=== PATIENT | female | born 1985 | race Caucasian/White ===

== ENCOUNTER 2017-05-05 10:35 | Emergency (ER) | payer MEDICAID ==
[~2017-05-05] VITALS: Ht 160 cm; Wt 78.0 kg
[~2017-05-05 10:35] MED LIST: CIPR500T4 PO; COMPLERA PO; D-ME473S18 PO; FOLI-49 PO; HYDR-3498 PO; HYDR-906 PO; IBUP-1542 PO; NAPR-260 PO; PHEN-537 PO; PREN1TAB12 PO
[2017-05-05 10:37] VITALS: Ht 160 cm; Wt 78.0 kg
[2017-05-05] MEDS ORDERED: SOD CHLORIDE 0.9% 1,000 ML IV STA (12:26)
[2017-05-05] MEDS ORDERED: ONDANSETRON 4 MG INJ IV STA (12:26)
[2017-05-05] MEDS ORDERED: morphine 4 MG/ML VIAL IV STA (12:26)
--- NOTE | 2017-05-05 12:54 | ERD ---
ER Documentation Chief Complaint Date/Time DATE: 05/05/17 TIME: 12:53 Chief Complaint ap since last night with nausea HPI 31-year-old female presents with right lower quadrant abdominal pain since last night. Patient associated with nausea and mild diarrhea. She denies any vomiting, fevers, past abdominal surgeries. Patient states that she has decreased appetite and her last meal was last night.. ROS All systems reviewed and are negative except as per history of present illness. Medications Home Meds Active Scripts Ondansetron (Ondansetron Odt) 4 Mg Tab.rapdis, 4 MG PO Q6H Y for NAUSEA AND/OR VOMITING, #14 TAB Prov:LUCY UNDERWOOD PA-C 05/05/17 Acetaminophen* (Tylenol*) 325 Mg Tablet, 2 TAB PO Q6 Y for PAIN AND OR ELEVATED TEMP, #20 TAB Prov:LUCY UNDERWOOD PA-C 05/05/17 Hydrocodone/Acetaminophen ([place] 5-325 Tablet) 1 Each Tablet, 1 TAB PO Q6H Y for PAIN, #15 TAB Prov:ZENON STUART PA-C 05/06/16 Ibuprofen* (Motrin*) 600 Mg Tab, 600 MG PO Q6H Y for PAIN AND OR ELEVATED TEMP, #30 TAB Prov:ZENON STUART PA-C 05/06/16 Hydrocodone Bit-Acetaminophen* ([place]*) 5-325 Mg Tab, 1 TAB PO DAILY for PAIN, # 7 TAB 0 Refills Prov:DEV PENG PA-C 12/22/15 Phenazopyridine Hcl* (Pyridium*) 100 Mg Tab, 100 MG PO TID Y for PAIN, #9 TAB 0 Refills Prov:DEV PENG PA-C 12/22/15 Ciprofloxacin Hcl* (Ciprofloxacin Hcl*) 500 Mg Tablet, 500 MG PO BID, #20 TAB 0 Refills Prov:DEV PENG PA-C 12/22/15 Ibuprofen* (Motrin*) 600 Mg Tab, 600 MG PO Q6, #30 TAB Prov:SHAWN RIVERO MD 03/22/15 Hydrocodone Bit-Acetaminophen* ([place]*) 5-325 Mg Tab, 1 TAB PO Q6 Y for PAIN, # 20 TAB Prov:SHAWN RIVERO MD 03/22/15 Allergies Allergies: Coded Allergies: No Known Allergy (Unverified , 8/5/15) PMhx/Soc History of Surgery: Yes ( 2003, 2011) Anesthesia Reaction: No Hx Neurological Disorder: No Hx Respiratory Disorders: No Hx Cardiac Disorders: No Hx Psychiatric Problems: No Hx Miscellaneous Medical Probl: No Hx Alcohol Use: No Hx Substance Use: No Hx Tobacco Use: No Physical Exam Vitals Vital Signs Date Time Temp Pulse Resp B/P Pulse Ox O2 Delivery O2 Flow Rate FiO2 05/05/17 10:37 98.1 71 20 111/53 99 Physical Exam GENERAL: well-developed/well-nourished, in no apparent distress, non-toxic appearing HENT: NC/AT, moist mucous membranes EYES: Conjunctiva normal NECK: Supple, no lymphadenopathy PULM: CTA bilaterally, no rales, rhonchi, or wheezing heard CV: Normal S1S2, RRR, good capillary refill GI: Soft, non-distended, tender to palpation right lower quadrant Normal bowel sounds, no masses or organomegaly felt on exam No gross peritonitis, no bruits Negative Rovsing, negative [place], negative McBurney's point, Negative CVAT BACK: No masses EXT: No clubbing, cyanosis, or edema NEURO: Alert and Orientated SKIN: Intact, normal turgor PSYCH: Normal mood and mentation Result Diagram: 05/05/17 1255 05/05/17 1255 Results 24 hrs Laboratory Tests Test 05/05/17 12:55 White Blood Count 5.710^3/ul Red Blood Count 4.2110^6/ul Hemoglobin 11.6g/dl Hematocrit 35.8% Mean Corpuscular Volume 85.0fl Mean Corpuscular Hemoglobin 27.6pg Mean Corpuscular Hemoglobin Concent 32.4g/dl Red Cell Distribution Width 12.9% Platelet Count 89508^3/UL Mean Platelet Volume 9.8fl Neutrophils % 56.8% Lymphocytes % 28.8% Monocytes % 12.4% Eosinophils % 1.4% Basophils % 0.4% Nucleated Red Blood Cells % 0.0/100WBC Neutrophils # 3.210^3/ul Lymphocytes # 1.610^3/ul Monocytes # 0.710^3/ul Eosinophils # 0.110^3/ul Basophils # 0.010^3/ul Nucleated Red Blood Cells # 0.010^3/ul Urine Color YELLOW Urine Clarity SLIGHTLY CLOUDY Urine pH 5.0 Urine Specific [place] 1.023 Urine Ketones TRACEmg/dL Urine Nitrite NEGATIVEmg/dL Urine Bilirubin NEGATIVEmg/dL Urine Urobilinogen NEGATIVEmg/dL Urine Leukocyte Esterase NEGATIVELeu/ul Urine Microscopic RBC 1/HPF Urine Microscopic WBC 1/HPF Urine Squamous Epithelial Cells FEW/HPF Urine Mucus MANY/HPF Urine Hemoglobin NEGATIVEmg/dL Urine Glucose NEGATIVEmg/dL Urine Total Protein NEGATIVEmg/dl Sodium Level 140mmol/L Potassium Level 3.9mmol/L Chloride Level 108mmol/L Carbon Dioxide Level 24mmol/L Anion Gap 12 Blood Urea Nitrogen 9mg/dl Creatinine 0.54mg/dl Glucose Level 84mg/dl Calcium Level 9.6mg/dl Total Bilirubin 0.4mg/dl Direct Bilirubin 0.00mg/dl Indirect Bilirubin 0.4mg/dl Aspartate Amino Transf (AST/SGOT) 30IU/L Alanine Aminotransferase (ALT/SGPT) 33IU/L Alkaline Phosphatase 58IU/L Total Protein 8.0g/dl Albumin 4.4g/dl Globulin 3.60g/dl Albumin/Globulin Ratio 1.22 Lipase 48U/L Current Medications Medications (Trade) Dose Ordered Sig/Liane Route PRN Reason Start Time Stop Time Status Last Admin Dose Admin Sodium Chloride (NS) 1,000 ml @ 1,000 mls/hr Q1H STAT IV 05/05/17 12:26 05/05/17 13:25 DC 05/05/17 13:08 Morphine Sulfate (morphine) 6 mg ONCE STAT IV 05/05/17 12:26 05/05/17 12:27 DC 05/05/17 13:08 Ondansetron HCl (Zofran Inj) 4 mg ONCE STAT IV 05/05/17 12:26 05/05/17 12:27 DC 05/05/17 13:08 Procedures/MDM 31-year-old female presents with right lower quadrant abdominal pain and nausea since yesterday. There was no evidence of appendicitis, diverticulitis, or other acute emergent or surgical conditions. IV access established, Lab work was drawn. CBC did not show any evidence of leukocytosis or anemia. CMP did not show any evidence of renal, liver, or electrolyte abnormalities. Lipase was normal. UA did not show any evidence of hemoglobin or urinary tract infection. CT of the abdomen and pelvis was done and radiologist stated CT abd and pelvis without contrast: 1. No CT evidence of acute intra-abdominal or pelvic process. 2. Mild fullness of the right renal collecting system, stable compared to 12/21. 3. Limited diverticulosis without evidence of diverticulitis. Patient stable to be discharged home to follow-up with primary care Departure Diagnosis: Primary Impression: Abdominal pain Additional Impression: Nausea Condition: Stable LUCY UNDERWOOD PA-C May 05, 2017 12:54
[2017-05-05 13:13] LABS: BASOPHILS % 0.4 % (0.0-2.0); EOSINOPHILS # 0.1 10^3/ul (0.0-0.5); EOSINOPHILS % 1.4 % (0.0-7.0); HEMATOCRIT 35.8 % (37.0-47.0); HEMOGLOBIN 11.6 g/dl (12.0-16.0); LYMPHOCYTES # 1.6 10^3/ul (0.8-2.9); LYMPHOCYTES % 28.8 % (15.0-51.0); MEAN CORPUSCULAR HEMOGLOBIN 27.6 pg (29.0-33.0); MEAN CORPUSCULAR HGB CONC 32.4 g/dl (32.0-37.0); MEAN PLATELET VOLUME 9.8 fl (7.4-10.4); MONOCYTE # 0.7 10^3/ul (0.3-0.9); MONOCYTES % 12.4 % (0.0-11.0); NEUTROPHIL # 3.2 10^3/ul (1.6-7.5); NEUTROPHILS % 56.8 % (39.0-77.0); PLATELET COUNT 233 10^3/UL (140-415); RED BLOOD COUNT 4.21 10^6/ul (4.20-5.40); RED CELL DISTRIBUTION WIDTH 12.9 % (11.5-14.5); WHITE BLOOD COUNT 5.7 10^3/ul (4.8-10.8)
[2017-05-05 13:19] LABS: ADD UMIC NO; UR ASCORBIC ACID NEGATIVE (NEGATIVE); UR BILIRUBIN (Dip) NEGATIVE (NEGATIVE); UR BLOOD (Dip) NEGATIVE (NEGATIVE); UR CLARITY SLIGHTLY CLOUDY (CLEAR); UR COLOR YELLOW (YELLOW); UR GLUCOSE (Dip) NEGATIVE (NEGATIVE); UR KETONES (Dip) TRACE mg/dL (NEGATIVE); UR LEUKOCYTE ESTERASE (Dip) NEGATIVE Leu/ul (NEGATIVE); UR MUCUS MANY /HPF (NONE SEEN); UR NITRITE (Dip) NEGATIVE (NEGATIVE); UR RBC 1 /HPF (0-5); UR SPECIFIC GRAVITY (Dip) 1.023 (1.003-1.030); UR SQUAMOUS EPITHELIAL CELL FEW /HPF (FEW); UR TOTAL PROTEIN (Dip) NEGATIVE (NEGATIVE); UR UROBILINOGEN (Dip) NEGATIVE (NEGATIVE)
[2017-05-05 13:32] LABS: ALBUMIN 4.4 g/dl (3.3-4.9); ALBUMIN/GLOBULIN RATIO 1.22; BILIRUBIN,INDIRECT 0.4 mg/dl (0-1.1); BILIRUBIN,TOTAL 0.4 mg/dl (0.2-1.3); CALCIUM 9.6 mg/dl (8.4-10.2); CREATININE 0.54 mg/dl (0.44-1.00); POTASSIUM 3.9 mmol/L (3.5-5.1)
--- NOTE | 2017-05-05 14:08 | RADRPT ---
PROCEDURE: CT Abdomen and Pelvis without contrast. CLINICAL INDICATION: Abdominal pain TECHNIQUE: CT scan of the abdomen and pelvis without contrast was performed on a multi-slice CT sc estefani without intravenous contrast. Coronal and sagittal reformatted images were obtained from the axial source images. Images were reviewed on a high-resolution PACS workstation. One or more of the following does reduction techniques were used: Automated exposure control; adjustment of the mA an d/or kV according to patient size; use of the aorta of reconstruction technique. The total exam CTD I equals 10.9 mGy and the total exam DLP equals 581.03 mGy-cm. COMPARISON: CT abdomen pelvis 12/22/2015 FINDINGS: There is minimal bibasilar atelectasis and/or scarring. Heart size is normal, and there is no evide nce of pericardial thickening or effusion. The liver, spleen, and pancreas are normal given limitations of a noncontrast CT examination. The g allbladder is normal. The adrenal glands are normal. There is mild fullness of the right renal collecting system which is stable compared to 12/22/2015 and likely within normal limits for this patient. No renal calcifica tions or jessica hydronephrosis is identified. The aorta is of normal caliber. There are a few shoddy and borderline enlarged retroperitoneal lymp h nodes, stable compared to prior study. There is no jessica retroperitoneal lymph node enlargement. There is no evidence of large or small bowel obstruction. There are moderate to scattered colonic di verticula. A normal appendix is identified. No free fluid or fluid collections are identified. No inflammatory changes are seen. The uterus is present. There are a few borderline enlarged right iliac lymph nodes, unchanged in siz e compared to 2016. The bladder is decompressed and collapsed. No free fluid is identified. The in guinal regions are unremarkable. The bones are intact. IMPRESSION: 1. No CT evidence of acute intra-abdominal or pelvic process. 2. Mild fullness of the right renal collecting system, stable compared to 12/22/2015. 3. Limited diverticulosis without evidence of diverticulitis. RPTAT: KK .Levi Gamez MD, MD Date Time Electronically viewed and signed by .Levi Gamez MD, MD on 05/05/2017 14:08 .B/
[2017-05-05] MEDS ORDERED: ONDA4TAB14 PO (14:44)
[2017-05-05] MEDS ORDERED: ACET325T33 PO (14:44)
[2017-05-05 15:07] VITALS: BP 107/63; PULSE 69; RESP 18; TEMP 98.2
== END 2017-05-05 15:08 | disposition home or self-care (01) ==
LOC: FTE 10:35
DX: R10.31 Right lower quadrant pain (principal); R11.0 Nausea
CPT/HCPCS: 36415; 74176; 80053; 81001; 83690; 85025; 96374; 96375; J2270; J2405; J7030; Z7502; 81003

== ENCOUNTER 2018-05-19 07:11 | Emergency (ER) | END 2018-05-19 08:47 | disposition home or self-care (01) ==

== ENCOUNTER 2018-10-20 17:28 | Emergency (ER) | payer MEDICAID ==
[~2018-10-20] VITALS: Ht 154.9 cm; Wt 62.3 kg
[~2018-10-20 17:28] MED LIST changes: +ACET325T33 PO; +CYCL10TA7 PO; +ELIM TOP; +HC30CR25 TOP; +HYDR-4011 PO; -HYDR-906 PO; -NAPR-260 PO; +NAPR-985 PO; +ONDA4TAB14 PO
[2018-10-20 17:36] VITALS: Ht 154.9 cm; Wt 62.3 kg
[2018-10-20] MEDS ORDERED: morphine 4 MG/ML VIAL IV STA (18:26)
[2018-10-20] MEDS ORDERED: SOD CHLORIDE 0.9% 1,000 ML IV STA (18:26)
[2018-10-20] MEDS ORDERED: ONDANSETRON 4 MG INJ IV STA (18:26)
--- NOTE | 2018-10-20 18:28 | ERD ---
ER Documentation Chief Complaint Chief Complaint AP AND POOLE SINCE FRIDAY HPI 33-year-old female presents with diffuse right sided abdominal pain that she has had since Friday with associated nausea and vomiting. No diarrhea. No fever. She also states she has been having a headache. She has not taken any medication for her symptoms. She denies possibility of . No change after eating. No dysuria hematuria or frequency. ROS All systems reviewed and are negative except as per history of present illness. Medications Home Meds Active Scripts Ibuprofen* (Ibuprofen*) 800 Mg Tab, 800 MG PO Q6H PRN for PAIN, #30 TAB Prov:ZENON STUART PA-C 10/20/18 Ondansetron (Ondansetron Odt) 4 Mg Tab.rapdis, 4 MG PO Q6H PRN for NAUSEA AND/OR VOMITING, #20 TAB Prov:ZENON STUART PA-C 10/20/18 Hydrocodone/Acetaminophen ([place] 5-325 Tablet) 1 Each Tablet, 1 TAB PO Q6H PRN for PAIN, #15 TAB Prov:ZENON STUART PA-C 10/20/18 Cyclobenzaprine Hcl* (Cyclobenzaprine Hcl*) 10 Mg Tablet, 10 MG PO TID, #15 TAB Prov:CHEKO WILLAMS PA-C 05/19/18 Naproxen* (Naprosyn*) 500 Mg Tablet, 500 MG PO BID PRN for PAIN AND/OR INFLAMMATION, #30 TAB Prov:CHEKO WILLAMS PA-C 05/19/18 Hydrocodone/Acetaminophen ([place] 5-325 Tablet) 1 Each Tablet, 1 TAB PO Q6H PRN for PAIN, #7 TAB Prov:CHEKO WILLAMS PA-C 05/19/18 Hydrocortisone* Topical (Hydrocortisone* Topical) 2.5%-28.3 Gm Cream..g., 1 APPLIC TOP BID, #1 TUB Prov:MAURA GUY PA-C 01/20/18 Permethrin* (Elimite*) 5% Cr, 1 APPLIC TOP ONCE, #1 TUB Prov:MAURA GUY PA-C 01/20/18 Ondansetron (Ondansetron Odt) 4 Mg Tab.rapdis, 4 MG PO Q6H PRN for NAUSEA AND/OR VOMITING, #14 TAB Prov:LUCY UNDERWOOD PA-C 05/05/17 Acetaminophen* (Tylenol*) 325 Mg Tablet, 2 TAB PO Q6 PRN for PAIN AND OR ELEVATED TEMP, #20 TAB Prov:LUCY UNDERWOOD PA-C 05/05/17 Naproxen* (Naprosyn*) 500 Mg Tablet, 500 MG PO BID PRN for PAIN AND/OR INFLAMMATION, #30 TAB Prov:JHON HAIDER 09/28/16 Dextromethorphan Hb-Promethazine Hcl (Promethazine DM Syrup) 473 Ml Syrup, 10 ML PO Q6H PRN for COUGH, #4 OZ Prov:JHON HAIDER 09/28/16 Hydrocodone/Acetaminophen ([place] 5-325 Tablet) 1 Each Tablet, 1 TAB PO Q6H PRN for PAIN, #15 TAB Prov:ZENON STUART PA-C 05/06/16 Ibuprofen* (Motrin*) 600 Mg Tab, 600 MG PO Q6H PRN for PAIN AND OR ELEVATED TEMP, #30 TAB Prov:ZENON STUART PA-C 05/06/16 Hydrocodone Bit-Acetaminophen* ([place]*) 5-325 Mg Tab, 1 TAB PO DAILY for PAIN, #7 TAB 0 Refills Prov:DEV PENG PA-C 12/22/15 Phenazopyridine Hcl* (Pyridium*) 100 Mg Tab, 100 MG PO TID PRN for PAIN, #9 TAB 0 Refills Prov:DEV PENG PA-C 12/22/15 Ciprofloxacin Hcl* (Ciprofloxacin Hcl*) 500 Mg Tablet, 500 MG PO BID, #20 TAB 0 Refills Prov:DEV PENG PA-C 12/22/15 Ibuprofen* (Motrin*) 600 Mg Tab, 600 MG PO Q6, #30 TAB Prov:SHAWN RIVERO MD 03/22/15 Hydrocodone Bit-Acetaminophen* ([place]*) 5-325 Mg Tab, 1 TAB PO Q6 PRN for PAIN, #20 TAB Prov:SHAWN RIVERO MD 03/22/15 Reported Medications Folic Acid* (Folic Acid*) 1 Mg Tablet, PO DAILY 12/22/11 Vit-Iron Fumarate-FA (Prenavite Tablet) 1 Tab Tablet, PO DAILY 12/22/11 [Complera] No Conflict Check, PO DAILY 12/22/11 Allergies Allergies: Coded Allergies: No Known Allergy (Unverified , 03/22/15) PMhx/Soc History of Surgery: Yes ( x3) Anesthesia Reaction: No Hx Neurological Disorder: No Hx Respiratory Disorders: No Hx Cardiac Disorders: No Hx Psychiatric Problems: No Hx Miscellaneous Medical Probl: Yes (HIV) Hx Alcohol Use: No Hx Substance Use: No Hx Tobacco Use: No FmHx Family History: No diabetes Physical Exam Vitals Vital Signs Date Temp Pulse Resp B/P (MAP) Pulse Ox O2 O2 Flow FiO2 Time Delivery Rate 10/20/18 97.6 70 16 125/60 99 17:36 (81) Physical Exam INITIAL VITAL SIGNS: Reviewed by me GENERAL: Awake, alert and oriented x 4, well appearing, nontoxic, speaking in full sentences. No acute distress HEAD: Atraumatic NECK: Supple. No masses. Full range of motion. No meningismus. No midline tenderness. EYES: EOMI. PERRL. EAR: No tenderness over the mastoids bilaterally. No exudates in the canals. TMs nonerythematous. NOSE: Normal nose. THROAT: No tonilar erythema or edema. No exudates. Uvula midline. No kissing tonsils. RESPIRATORY: Clear to auscultation bilaterally. Symmetric chest wall rise. No wheezing or rales. No accessory muscle use. CV: Regular rate and rhythm. No murmurs, rubs, or gallops. ABDOMEN: Soft, non-distended. Right mid abdominal tenderness. Negative [place]. Negative McBurneys point tenderness. No CVA tenderness bilaterally. No guarding. No rebound. Result Diagram: 10/20/183 10/20/18 183 Results 24 hrs Laboratory Tests Test 10/20/18 18:33 10/20/18 18:39 White Blood Count 8.8 10^3/ul Red Blood Count 3.95 10^6/ul Hemoglobin 11.3 g/dl Hematocrit 35.2 % Mean Corpuscular Volume 89.1 fl Mean Corpuscular Hemoglobin 28.6 pg Mean Corpuscular Hemoglobin Concent 32.1 g/dl Red Cell Distribution Width 13.6 % Platelet Count 301 10^3/UL Mean Platelet Volume 9.0 fl Immature Granulocytes % 0.500 % Neutrophils % 66.0 % Lymphocytes % 21.4 % Monocytes % 10.3 % Eosinophils % 1.3 % Basophils % 0.5 % Nucleated Red Blood Cells % 0.0 /100WBC Immature Granulocytes # 0.040 10^3/ul Neutrophils # 5.8 10^3/ul Lymphocytes # 1.9 10^3/ul Monocytes # 0.9 10^3/ul Eosinophils # 0.1 10^3/ul Basophils # 0.0 10^3/ul Nucleated Red Blood Cells # 0.0 10^3/ul Urine Color YELLOW Urine Clarity CLOUDY Urine pH 7.0 Urine Specific [place] 1.020 Urine Ketones NEGATIVE mg/dL Urine Nitrite NEGATIVE mg/dL Urine Bilirubin NEGATIVE mg/dL Urine Urobilinogen NEGATIVE mg/dL Urine Leukocyte Esterase NEGATIVE [place]/ul Urine Microscopic RBC 10 /HPF Urine Microscopic WBC 16 /HPF Urine Bacteria FEW /HPF Urine Hemoglobin NEGATIVE mg/dL Urine Glucose NEGATIVE mg/dL Urine Total Protein NEGATIVE mg/dl Sodium Level 143 mmol/L Potassium Level 3.9 mmol/L Chloride Level 109 mmol/L Carbon Dioxide Level 24 mmol/L Anion Gap 10 Blood Urea Nitrogen 13 mg/dl Creatinine 0.65 mg/dl Est Glomerular Filtrat Rate mL/min > 60 mL/min Glucose Level 89 mg/dl Calcium Level 9.5 mg/dl Total Bilirubin 0.1 mg/dl Direct Bilirubin 0.00 mg/dl Indirect Bilirubin 0.1 mg/dl Aspartate Amino Transf (AST/SGOT) 23 IU/L Alanine Aminotransferase (ALT/SGPT) 23 IU/L Alkaline Phosphatase 58 IU/L Total Protein 8.0 g/dl Albumin 4.6 g/dl Globulin 3.40 g/dl Albumin/Globulin Ratio 1.35 Lipase 79 U/L POC Beta HCG, Qualitative NEGATIVE Current Medications Medications Dose Sig/Liane Start Time Status Last (Trade) Ordered Route PRN Stop Time Admin Dose Reason Admin Sodium 1,000 ml @ Q1H STAT 10/20/18 DC 10/20/18 Chloride 1,000 mls/hr IV 18:26 10/20/18 18:39 19:25 Morphine 4 mg ONCE STAT 10/20/18 DC 10/20/18 Sulfate IV 18:26 10/20/18 18:39 (morphine) 18:27 Ondansetron 4 mg ONCE STAT 10/20/18 DC 10/20/18 HCl (Zofran IV 18:26 10/20/18 18:39 Inj) 18:27 Procedures/MDM Patient has right-sided abdominal pain. The differential diagnosis includes but is not limited to appendicitis, cholelithiasis, cholecystitis, pancreatitis, hepatitis, gastritis, peptic ulcer disease, bowel obstruction, diverticulitis, renal disease including stones, torsion, AAA, pyelonephritis, and others. Abdominal labs and CT ordered. Fluids and pain medication and nausea medication given. Labs are not acute. Urine did have hematuria. Her CT scan is negative. Is possibly she passed a kidney stone. However unclear etiology for her symptoms. She was given prescription for ibuprofen Zofran and [place] as well as copy of all of her labs and CT report so she can follow-up with primary care. Patient counseled regarding my diagnostic impression and care plan. Prior to discharge all questions answered. Pt agrees with treatment plan and understands strict return precautions. Pt is instructed to follow up with primary care provider within 24-48 hours. Precautionary instructions provided including instructions to return to the ER if not improving or for any worsening or changing symptoms or concerns. Departure Diagnosis: Primary Impression: Abdominal pain Condition: Stable ZENON STUART PA-C Oct 20, 2018 18:28
[2018-10-20] MEDS ORDERED: ONDA4TAB14 PO (20:03)
[2018-10-20] MEDS ORDERED: HYDR-4011 PO (20:03)
[2018-10-20] MEDS ORDERED: IBUP-1545 PO (20:03)
[2018-10-20] MEDS ORDERED: NITR-58 PO (20:06)
[2018-10-20 20:13] VITALS: BP 101/55; PULSE 51; RESP 16
== END 2018-10-20 20:13 | disposition home or self-care (01) ==
LOC: FTE 17:28
DX: R10.9 Unspecified abdominal pain (principal); Z21 Asymptomatic human immunodeficiency virus [HIV] infection status
CPT/HCPCS: 36415; 74176; 80053; 81001; 81025; 83690; 85025; 96374; 96375; J2270; J2405; J7030; Z7502